=== PATIENT | female | born 1960 | race Caucasian/White ===

== ENCOUNTER 2018-04-02 12:06 | Inpatient (IN) | payer BC ==
[2018-04-02 13:06] LABS: #Neutrophils 8.1 thou/uL (1.40-6.50); %Eosinophils 0.1 % (0.0-10.0); %Lymphocytes 10.1 % (21.0-51.0); %Monocytes 9.6 % (0.0-10.0); %Neutrophils 80.2 % (42.0-75.0); Hemoglobin 10.8 g/dL (12.0-16.0); Mean Corpuscular HGB CONC 33.2 g/dL (32.0-36.0); Mean Corpuscular Hemoglobin 33.3 pg (27.0-31.0); Mean Platelet Volume 7.2 fL (7.4-10.4); Platelet Count 438 thou/uL (130-400); RBC Distribution Width 12.2 % (11.5-14.5); Red Blood Cell (RBC) Count 3.25 mill/uL (4.20-5.40)
[2018-04-02 13:32] LABS: ALT (SGPT) 17 U/L (8-55); AST (SGOT) 22 U/L (5-34); Albumin 2.9 g/dL (3.5-5.0); Alkaline Phosphatase 84 U/L (40-150); Anion Gap 14 mmol/L (10-20); BUN (Urea Nitrogen) 5 mg/dL (9.8-20.1); Bilirubin, Total 0.6 mg/dL (0.2-1.2); Calc. Creatinine Clearance 0 mL/min (70-130); Calcium 8.4 mg/dL (7.8-10.44); Carbon Dioxide 22 mmol/L (22-29); Chloride 103 mmol/L (98-107); Estimated GFR-MDRD Greater than 90; Globulin 2.3 g/dL (2.4-3.5); Glucose 105 mg/dL (70-105); Potassium 4.1 mmol/L (3.5-5.1); Protein, Total 5.2 g/dL (6.0-8.3); Sodium 135 mmol/L (136-145)
[2018-04-02] MEDS ORDERED: Morphine 4 MG/ML VIAL SLOW IVP PRN (14:07)
[2018-04-02] MEDS ORDERED: Milk Of Magnesia 30 ML UDCUP PO PRN (14:07)
[2018-04-02] MEDS ORDERED: Acetaminophen 325 MG TAB PO PRN (14:07)
[2018-04-02] MEDS ORDERED: Ondansetron HCl/PF 4 MG/2 ML Vial IV PRN (14:07)
[2018-04-02] MEDS ORDERED: Fentanyl 100 MCG/2 ML VIAL SLOW IVP PRN (14:07)
[2018-04-02] MEDS ORDERED: Bisacodyl 10 MG SUPP PR PRN (14:07)
[2018-04-02] MEDS ORDERED: traMADol HCl 50 MG TAB PO PRN (14:07)
[2018-04-02] MEDS ORDERED: CEFAZOLIN/Water 2 GM/20 ML SYRINGE SLOW IVP SCH (14:15)
[2018-04-02] MEDS ORDERED: Communication Order-Pharmacy FS PRN (14:15)
[2018-04-02] MEDS ORDERED: diphenhydrAMINE 50 MG/ML VIAL ONE (14:17)
[2018-04-02] MEDS ORDERED: PROPOFOL 200 MG/20 ML VIAL ONE (14:17)
[2018-04-02] MEDS ORDERED: Lidocaine 1% PF 5 ML VIAL ONE (14:17)
[2018-04-02] MEDS ORDERED: Metoclopramide HCl 10 MG/2 ML VIAL ONE (14:17)
[2018-04-02] MEDS ORDERED: Dexamethasone 20 MG/5 ML VIAL ONE (14:17)
[2018-04-02] MEDS ORDERED: Glycopyrrolate 0.2 MG/ML 5 ML SYRINGE ONE (14:17)
--- NOTE | 2018-04-02 14:27 | HP ---
DATE OF ADMISSION: 04/02/2018 PRINCIPAL DIAGNOSIS: Right medial knee subcutaneous abscess. BRIEF HISTORY OF PRESENT ILLNESS: Patient is a 57-year-old lady who reports a 6 -month history of intermittent right medial knee pain with occasional drainage from a small subcutaneous abscess. This has been cared for by her primary care physician including multiple episodes of antibiotic treatment. Over the last 24 -48 hours, her pain has significantly increased and upon arrival at [facility], she was found to have an oral temperature of 102 degrees Fahrenheit with severe medial knee pain that is preventing her from being able to ambulate. As such, orthopedic consultation requested. PAST MEDICAL HISTORY: Remarkable for hypertension, osteoarthritis, and anxiety. PAST SURGICAL HISTORY: Includes spine surgery performed in [place] in 1997. MEDICATIONS: Include a hypertensive medication and a medication for anxiety. She has been taking occasional Tylenol 3 for pain. DRUG ALLERGIES: None known. SOCIAL HISTORY: She smokes a half pack of cigarettes per day and has done so for 40 years. She denies recreational drug use. Denies alcohol use. FAMILY HISTORY: Noncontributory. REVIEW OF SYSTEMS: Patient reports a 2-day history of intermittent fevers and chills. She currently denies shortness of breath or chest pain. She denies numbness or tingling in the lower extremity. PHYSICAL EXAMINATION: VITAL SIGNS: Temperature of 102 degrees Fahrenheit orally. She has a heart rate of 95, respiratory rate of 16, and blood pressure 160/80. She reports a pain level of 8/10. HEENT: Atraumatic, normocephalic. HEART: Shows a regular rate and rhythm without murmur. LUNGS: Clear to auscultation bilaterally with good breath sounds. ABDOMEN: Round, but nontender with normal bowel sounds. Pelvis is stable. EXTREMITIES: Remarkable for right lower extremity with a small focal mass at the medial aspect of the knee just distal to the joint line and appears to be subcutaneous in location. There is a small area of drainage centralized over this small mass that is weeping serous fluid. I do not appreciate surrounding erythema. Distally, she has intact subjective sensation. Her calf is soft and nontender. LABORATORY DATA AND IMAGING DATA: She has CBC, blood culture, CRP, sed rate, and complete metabolic panel pending. X-ray; right knee films are remarkable for severe degenerative joint disease of the knee with bone on bone changes at the medial joint space and evidence of chondrocalcinosis laterally. She is found to have a soft tissue mass also noted in the subcutaneous tissue at the medial aspect of the knee. ASSESSMENT: A 57-year-old lady with chronic draining abscess right knee which has not responded to antibiotics. PLAN: At this time, I believe it is time to proceed to the operating room for incision and drainage of this mass. At this time, I do not see evidence for a septic joint, although when she is in the operating room, we will reassess the knee and if there is suspicion for possible septic joint involvement, we will proceed with a lateral aspiration keeping the needle poke away from the area of abscess. I have discussed with patient the risks and benefits of the procedure. The risks include, but are not limited to bleeding, infection, nerve injury, DVT, PE, worsening infection, loss of limb or life. Patient appears to understand and does wish to proceed. Consent will be obtained prior to surgery. JAHAIRA
--- NOTE | 2018-04-02 14:36 | RAD ---
4 VIEWS RIGHT KNEE: Date: 04/02/18 HISTORY: Abscess on right knee for 2 months. FINDINGS: There is severe osteoarthrosis of the right knee. There is soft tissue swelling seen medial to the kn ee. There is mild joint capsular distention. There is a small interarticular body seen within the pos terior aspect of the knee joint measuring 1.3 cm. This is seen approximately posteromedial to the med ial femoral condyle. IMPRESSION: 1. Severe osteoarthrosis of the right knee with interarticular body. 2. Soft tissue swelling seen along the medial aspect of the right knee. POS: [facility]
[2018-04-02] MEDS ORDERED: Neomycin-Polymyxin 1 ML AMP ONE ×2 (16:00→17:09)
[2018-04-02] MEDS ORDERED: CEFAZOLIN/Water 2 GM/20 ML SYRINGE ONE (16:02)
[2018-04-02] MEDS ORDERED: Ondansetron ODT 4 MG TAB PO PRN (16:14)
[2018-04-02] MEDS ORDERED: Fentanyl 100 MCG/2 ML VIAL ONE (16:19)
[2018-04-02] MEDS ORDERED: Midazolam HCl 2 mg/2 ml Vial ONE (16:32)
[2018-04-02] MEDS ORDERED: TETANUS AND DIPHTHERIA TOX/PF 0.5 ML DISP.SYRIN IM SCH (17:00)
[2018-04-02] MEDS ORDERED: HYDROmorphone 2 MG/ML VIAL ONE ×2 (17:42→21:10)
[2018-04-02] MEDS ORDERED: Promethazine HCl 25 MG/ML VIAL SLOW IVP PRN (17:51)
[2018-04-02] MEDS ORDERED: Promethazine HCl 25 MG/ML VIAL IM PRN (17:51)
[2018-04-02] MEDS ORDERED: HYDROmorphone 2 MG/ML VIAL SLOW IVP PRN (17:51)
[2018-04-02] MEDS ORDERED: Meperidine HCl/PF 25 MG/ML VIAL SLOW IVP PRN (17:51)
[2018-04-02] MEDS ORDERED: Ketorolac Tromethamine 30 MG/ML VIAL IVP SCH (18:00)
[2018-04-02 19:39] LABS: BF Color Red; Body Fluid Source SYNOVIAL FLUID; Clarity Cloudy/Turbid (Clear); RBC Count-Automated 401000 /cumm; Tube # EDTA; WBC/NonHematic-Auto 23900 /cumm
[2018-04-02 20:11] LABS: BF Segmented Neutrophils 91 %; Cell Count Non Hematic 1 %; Lymphocytes 8 %
[2018-04-02 22:25] VITALS: BMI 35.9
[2018-04-02] MEDS: Aspirin 81 mg Enteric Coated Tablet PO SCH (23:12)
[2018-04-02] MEDS: Ketorolac Tromethamine 30 MG/ML VIAL IVP SCH (23:12)
[2018-04-02] MEDS: Sodium Chloride 0.9% 1,000 ML IV SCH (23:13)
[2018-04-02] MEDS: Vancomycin HCl 1 GM in Premix Bag 1 BAG IVPB SCH (23:14)
[2018-04-02] MEDS: Piperacillin/Tazobactam 3.375 GM in Sodium Chloride 0.9% 100 ML IVPB SCH (23:14)
[2018-04-02] MEDS: HYDROcodone/Acetaminophen 10/325 mg Tablet PO PRN (23:19)
[2018-04-02] MEDS: Sodium Chloride 0.9% 100 ML IV SCH ×3 (23:26→23:28)
--- NOTE | 2018-04-03 01:35 | OP ---
DATE OF SURGERY: 04/02/2018 PREOPERATIVE DIAGNOSIS: Right medial knee abscess. 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 PROCEDURES: 1. Excision of synovial cutaneous fistula, right knee. 2. Irrigation through medial arthrotomy of right septic knee. ANESTHESIA: General. SURGEON: Brennan Castaneda M.D. TOURNIQUET TIME: 15 minutes at 300 mmHg. SPECIMEN: 1. Swab and syringe sent for cell count, culture, and sensitivity of intra-articular fluid and absce ss fluid. 2. Synovial cutaneous fistula excised and sent for pathology. COMPLICATIONS: None. DRAINS: None. SPECIMEN: None. OUTCOME: Satisfactory irrigation of right knee. INDICATIONS: Patient is a 57-year-old lady with a 6-month history of chronic draining wound from the right medial knee. This has been treated with periodic antibiotics; however, she presents to the ER today with a fever of 102 degrees and increasing pain in the right knee. X-ray shows a severely deg enerative knee with a soft tissue swelling at the medial aspect of the knee and clinical exam shows e vidence of a subcutaneous abscess with some draining seropurulent material. After discussion with chuck lundy including risks and benefits, we decided to proceed with anticipated incision and drainage of t his abscess. Informed consent has been obtained. I believe all questions have been answered. DESCRIPTION OF PROCEDURE: The patient was brought to the operating room and a timeout was performed followed by induction of general anesthesia. A sterile prep and drape was then performed of the righ t lower extremity. Next, a vertical incision was made centered over the small draining sinus. After skin was sharply incised, dissection was carried down bluntly and at this point, there was found to be a firm cavity around the small sinus. Using blunt dissection, this cavity was further dissected f rom the subcutaneous tissue and eventually resected. At this point, it became obvious that this mass was actually a synovial cutaneous fistula wall with a still present fistula entering the right knee at the medial aspect of the knee near the patellofemoral joint. This remaining fistula was also lorna ply excised using a scalpel and removed thereby entering the knee joint proper and at this point a cl oudy fluid was encountered. This was aspirated as well as swabbed and sent for cell count Gram stain , culture and sensitivity. Next, a suction device was placed in the knee and further fluid was drain ed from the knee. Once the entire synovial cutaneous fistula was excised sharply, there was found to be a rather large hole in the medial retinaculum. A 3 L of normal saline with Pulsavac was then irr igated through the knee. At this point, it was felt that given the chronicity of this infection, it would be best to leave this wound open to allow for drainage as such and was packed with a saline soa ked gauze and then further gauze, and ABD dressing. At the completion of this, the patient was then transferred to recovery room in stable condition. It should be noted that midway through the procedu re, the tourniquet was inflated to allow for hemostasis to be obtained. The tourniquet was let down at the completion of dressing. There were no complications. Patient tolerated the procedure well. She will be started on empiric antibiotic coverage and Infectious Disease consultation will be obtain ed.
[2018-04-03] MEDS: HYDROcodone/Acetaminophen 10/325 mg Tablet PO PRN ×5 (03:11→23:27)
[2018-04-03] MEDS: Piperacillin/Tazobactam 3.375 GM in Sodium Chloride 0.9% 100 ML IVPB SCH ×4 (04:38→20:41)
[2018-04-03] MEDS: Ketorolac Tromethamine 30 MG/ML VIAL IVP SCH ×4 (04:38→23:27)
[2018-04-03 04:43] LABS: #Lymphocytes 0.7 thou/uL (1.20-3.40); #Monocytes 0.5 thou/uL (0.11-0.59); #Neutrophils 8.6 thou/uL (1.40-6.50); %Basophils 0.1 % (0.0-1.0); %Eosinophils 0.1 % (0.0-10.0); %Lymphocytes 7.1 % (21.0-51.0); %Monocytes 5.1 % (0.0-10.0); %Neutrophils 87.7 % (42.0-75.0); Hemoglobin 10.6 g/dL (12.0-16.0); Mean Corpuscular HGB CONC 32.3 g/dL (32.0-36.0); Mean Corpuscular Hemoglobin 32.7 pg (27.0-31.0); Mean Platelet Volume 7.3 fL (7.4-10.4); Platelet Count 460 thou/uL (130-400); RBC Distribution Width 12.3 % (11.5-14.5); Red Blood Cell (RBC) Count 3.26 mill/uL (4.20-5.40); White Blood Cell (WBC) Count 9.8 thou/uL (4.8-10.8)
[2018-04-03] MEDS ORDERED: busPIRone HCl 10 MG TAB PO PRN (07:37)
[2018-04-03] MEDS ORDERED: Labetalol HCl 100 MG/20 ML VIAL SLOW IVP PRN (07:38)
[2018-04-03] MEDS: Metoprolol Tartrate 25 MG TAB PO SCH ×2 (09:24→20:42)
[2018-04-03] MEDS: Aspirin 81 mg Enteric Coated Tablet PO SCH ×2 (09:24→20:42)
[2018-04-03] MEDS: Vancomycin HCl 1 GM in Premix Bag 1 BAG IVPB SCH (11:08)
[2018-04-03] MEDS: Sodium Chloride 0.9% 1,000 ML IV SCH ×2 (11:13→18:18)
--- NOTE | 2018-04-03 19:46 | PDOC.PN ---
- Subjective Encounter Start Date: 04/03/18 Encounter Start Time: 14:30 Patient seen and examined for med mngt. Had some nausea over the last 3 days - now resolved. No CP/SOB. - Objective MAR Reviewed: Yes Vital Signs & Weight: Vital Signs (12 hours) Temp Pulse Resp BP Pulse Ox 04/03/18 16:02 98.1 F 75 16 131/76 96 04/03/18 11:26 98.1 F 72 16 124/61 95 04/03/18 09:22 96 Weight Admit Weight 190 lb Weight 190 lb I&O: 04/02/18 04/03/18 04/04/18 06:59 06:59 06:59 Intake Total 1200 2250 Balance 1200 2250 Result Diagrams: 04/03/18 03:28 04/02/18 12:48 EKG Reviewed by me: Yes (Tele in chart - SR) Phys Exam - Physical Examination Constitutional: NAD Respiratory: no wheezing, no rhonchi Cardiovascular: RRR, no rub Gastrointestinal: soft, non-tender, positive bowel sounds Musculoskeletal: no edema Neurological: moves all 4 limbs Dx/Plan - Plan DVT proph w/SCDs IMPRESSION: 1. HTN 2. MRSA bacteremia due to infected knee 3. Obesity BMI 35.9 4. Anxiety/Depression PLAN: Cont Metoprolol at low dose Resume Buspirone Resume Benazepril at low dose Cont Vancomycin Monitor Vancomycin level Echo to r/o vegetation Review of Systems - Review of Systems Respiratory: negative: Cough, Dry, Shortness of Breath, Hemoptysis, SOB with Excertion, Pleuritic Pain, Sputum, Wheezing Cardiovascular: negative: chest pain, palpitations, orthopnea, paroxysmal nocturnal dyspnea, edema, light headedness, other - Medications/Allergies Allergies/Adverse Reactions: Allergies Allergy/AdvReac Type Severity Reaction Status Date / Time No Known Drug Allergies Allergy Verified 04/03/18 03:31 Medications: Current Medications Acetaminophen (Tylenol) 650 mg PO Q6H PRN PRN Reason: Headache/Temp >101F/Mild Pain Hydrocodone Bitart/Acetaminophen ([place] 10/325) 1 tab PO Q4H PRN PRN Reason: Moderate Pain (4-6) Last Admin: 04/03/18 03:11 Dose: 1 tab Hydrocodone Bitart/Acetaminophen ([place] 10/325) 2 tab PO Q4H PRN PRN Reason: Severe Pain (7-10) Last Admin: 04/03/18 17:29 Dose: 2 tab Aspirin (Ecotrin) 81 mg PO BID [facility] Last Admin: 04/03/18 09:24 Dose: 81 mg Bisacodyl (Dulcolax) 10 mg [place] DAILY PRN PRN Reason: Constipation Buspirone HCl (Buspar) 10 mg PO TID PRN PRN Reason: Anxiety Fentanyl (Sublimaze) 50 mcg SLOW IVP Q30M PRN PRN Reason: Severe breakthrough pain Piperacillin Sod/Tazobactam (Sod 3.375 gm/ Sodium Chloride) 100 mls @ 200 mls/ hr IVPB 0400,1000,1600,2200 [facility] Last Admin: 04/03/18 16:58 Dose: 100 mls Vancomycin HCl 1 gm/ Device 200 mls @ 200 mls/hr IVPB 1100,2300 [facility] Last Admin: 04/03/18 11:08 Dose: 200 mls Sodium Chloride (Normal Saline 0.9%) 1,000 mls @ 100 mls/hr IV .Q10H [facility] Last Admin: 04/03/18 18:18 Dose: Not Given Ketorolac Tromethamine (Toradol) 15 mg IVP 0500,1100,1700,2300 [facility] Stop: 04/03/18 23:01 Last Admin: 04/03/18 17:00 Dose: 15 mg Labetalol HCl (Normodyne) 10 mg SLOW IVP Q4H PRN PRN Reason: Systolic BP > 180 Magnesium Hydroxide (Milk Of Magnesium) 30 ml PO DAILY PRN PRN Reason: Constipation Metoprolol Tartrate (Lopressor) 12.5 mg PO BID [facility] Last Admin: 04/03/18 09:24 Dose: 12.5 mg Miscellaneous Information (Communication Order-Pharmacy) 1 each FS PRN PRN PRN Reason: Pharmacy to dose Miscellaneous Medication (Pharmacy To Dose) 1 each IVPB PRN PRN PRN Reason: Pharmacy to dose Morphine Sulfate (Morphine) 2 mg IVP Q2H PRN PRN Reason: Moderate Pain (4-6) Morphine Sulfate (Morphine) 4 mg SLOW IVP Q2H PRN PRN Reason: Severe Pain (7-10) Ondansetron HCl (Zofran Odt) 4 mg PO Q6H PRN PRN Reason: Nausea/Vomiting Ondansetron HCl (Zofran) 4 mg IV Q6H PRN PRN Reason: Nausea Sodium Chloride (Flush - Normal Saline) 10 ml IVF PRN PRN PRN Reason: Saline Flush Tramadol HCl (Ultram) 50 mg PO Q6H PRN PRN Reason: Mild Pain (1-3) Tramadol HCl (Ultram) 100 mg PO Q6H PRN PRN Reason: Moderate Pain (4-6)
[2018-04-03 22:10] LABS: Vancomycin, Trough 9.2 ug/mL
[2018-04-03] MEDS: Vancomycin HCl 1.5 GM in Sodium Chloride 0.9% 250 ML 300 ML IVPB SCH (23:28)
[2018-04-04] MEDS: Vancomycin HCl 1 GM in Premix Bag 1 BAG IVPB SCH (00:02)
[2018-04-04] MEDS: Piperacillin/Tazobactam 3.375 GM in Sodium Chloride 0.9% 100 ML IVPB SCH ×3 (03:56→15:03)
[2018-04-04] MEDS: Sodium Chloride 0.9% 1,000 ML IV SCH ×3 (03:57→21:56)
[2018-04-04 05:43] LABS: Anion Gap 12 mmol/L (10-20); BUN (Urea Nitrogen) 6 mg/dL (9.8-20.1); Calc. Creatinine Clearance 139 mL/min (70-130); Calcium 9.1 mg/dL (7.8-10.44); Carbon Dioxide 25 mmol/L (22-29); Chloride 106 mmol/L (98-107); Estimated GFR-MDRD Greater than 90; Glucose 101 mg/dL (70-105); Magnesium 1.9 mg/dL (1.6-2.6); Potassium 3.9 mmol/L (3.5-5.1); Sodium 139 mmol/L (136-145)
[2018-04-04 05:55] LABS: #Lymphocytes 1.2 thou/uL (1.20-3.40); #Monocytes 0.9 thou/uL (0.11-0.59); #Neutrophils 7.4 thou/uL (1.40-6.50); %Basophils 0.1 % (0.0-1.0); %Eosinophils 0.4 % (0.0-10.0); %Lymphocytes 12.8 % (21.0-51.0); %Monocytes 9.4 % (0.0-10.0); %Neutrophils 77.3 % (42.0-75.0); Hemoglobin 10.1 g/dL (12.0-16.0); Mean Corpuscular HGB CONC 32.3 g/dL (32.0-36.0); Mean Corpuscular Hemoglobin 32.4 pg (27.0-31.0); Mean Platelet Volume 6.8 fL (7.4-10.4); Platelet Count 487 thou/uL (130-400); RBC Distribution Width 12.3 % (11.5-14.5); Red Blood Cell (RBC) Count 3.12 mill/uL (4.20-5.40); White Blood Cell (WBC) Count 9.6 thou/uL (4.8-10.8)
[2018-04-04] MEDS: Aspirin 81 mg Enteric Coated Tablet PO SCH ×2 (08:14→21:55)
[2018-04-04] MEDS: Metoprolol Tartrate 25 MG TAB PO SCH ×2 (08:16→21:55)
[2018-04-04] MEDS ORDERED: PROPOFOL 200 MG/20 ML VIAL ONE (10:00)
[2018-04-04] MEDS ORDERED: Lidocaine 1% PF 5 ML VIAL ONE (10:00)
[2018-04-04] MEDS ORDERED: Succinylcholine Chloride 20 MG/ML 10 ml SYRINGE FS ONE (10:00)
[2018-04-04] MEDS ORDERED: Ondansetron HCl/PF 4 MG/2 ML Vial ONE (10:00)
[2018-04-04] MEDS ORDERED: Glycopyrrolate 0.2 MG/ML 5 ML SYRINGE ONE (10:00)
[2018-04-04] MEDS ORDERED: Fentanyl 100 MCG/2 ML VIAL ONE ×4 (10:58→13:52)
[2018-04-04] MEDS ORDERED: Neomycin-Polymyxin 1 ML AMP ONE (11:01)
[2018-04-04] MEDS ORDERED: Promethazine HCl 25 MG/ML VIAL ONE (12:40)
--- NOTE | 2018-04-04 12:40 | OP ---
DATE OF OPERATION: 04/04/2018 OPERATION: Irrigation and debridement of right knee infection with drain placement. PREOPERATIVE DIAGNOSIS: Right septic knee arthritis. POSTOPERATIVE DIAGNOSIS: Right septic knee arthritis. COMPLICATIONS: None. ESTIMATED BLOOD LOSS: Minimal. SURGEON: Haider Pace M.D. ANESTHESIA: General. INDICATIONS: Ms. Elliott is a 57-year-old female who has a chronically infected right knee. She h as had 1 previous irrigation procedure. She was indicated for repeat I&D to hopefully help to eradic ate infection. Goal of surgery is to irrigate the knee and closed the wound as well as place a drain . She will continue intravenous antibiotics. DESCRIPTION OF PROCEDURE: Ms. Elliott was identified in the preoperative holding area. Her correc t extremity was marked. She was carried to the operating room. She was positioned supine. General anesthesia was induced. A multidisciplinary timeout was performed. The right lower extremity was pr epped and draped in sterile fashion. We began the procedure by extending the patient's open medial a rthrotomy. We encountered some purulent material in the knee joint. We obtained good access to the knee joint and then thoroughly irrigated the joint with 5 liters under pulse lavage. There was an tibiotic in the irrigant. We performed a synovectomy gently with a rongeur. At this point, we place d a large Hemovac drain within the knee joint. This was sutured in place. We then closed the arthro evelyn with a PDS suture followed by nylon for the skin. A sterile dressing was applied at this point. The patient was taken to the recovery room in good condition without complication.
[2018-04-04] MEDS: Vancomycin HCl 1.5 GM in Sodium Chloride 0.9% 250 ML 300 ML IVPB SCH ×2 (13:33→22:03)
[2018-04-04] MEDS ORDERED: HYDROmorphone 2 MG/ML VIAL ONE (13:36)
[2018-04-04] MEDS: HYDROcodone/Acetaminophen 10/325 mg Tablet PO PRN ×3 (14:58→23:24)
--- NOTE | 2018-04-04 23:57 | CON ---
DATE OF CONSULTATION: 04/04/2018 REASON FOR CONSULTATION: Right knee infection. HISTORY OF PRESENT ILLNESS: A 57-year-old, who has a history of hypertension, osteoarthritis, and in September of this year developed what she describes as abscess in the medial aspect of the right knee associated with pain and purulent drainage. The patient went to the emergency room in [facility] and had limited ER incision and debridement procedure and was placed on short term oral antimicrobial therapy. She does not recall any culture results. She continued to experience chronic drainage from that area, sometimes clear, sometimes purulent and was given antimicrobial therapy. Again , no culture data is available from those episodes. Eventually an MRI of the knee was done and they told her that she has had a "growth" in the area of the medial knee and she was referred to an orthopedic surgeon. Unfortunately, her became ill and she was not able to continue with the workup for her right knee problem, until now when things got out of hand, she started experiencing much more intense pain and functional limitation. Eventually end up admitted and now has had two procedures one by Dr. Castaneda. The postop diagnosis was a chronic infection of the right knee with synovial cutaneous fistula, which was excised and Dr. Pace 2 days later in the area and did a repeat washout with synovectomy. Hemovac drain in place. The arthrotomy was closed with PDS suture. REVIEW OF SYSTEMS: Currently, she is awake and alert. Denies any headaches, visual symptoms, sore throat, odynophagia or dysphagia, no back pain, no dyspnea , no cough, no abdominal pain. She is voiding spontaneously. No diarrhea. PAST MEDICAL HISTORY: Hypertension, osteoarthritis, anxiety, chronic right knee infection. PAST SURGICAL HISTORY: Laminectomy in [place] many years ago. MEDICATIONS: Currently receiving Hayes, Ecotrin, Lotensin, Dulcolax, BuSpar, Sublimaze, Normodyne, Lopressor, Zofran, Zosyn, and vancomycin. ALLERGIES: None. SOCIAL HISTORY: Current smoker. Does not drink alcoholic beverages. No drug use. Lives in [place]. FAMILY HISTORY: Noncontributory. PHYSICAL EXAMINATION: VITAL SIGNS: T-max 98.4, blood pressure 130/70, pulse 90, respirations 20, and O2 saturation 97%. SKIN: Peripheral IV access. No Noguera catheter. The right knee is dressed. Dressing not removed at this time. No lymphadenopathy. HEENT: She has numerous missing teeth. Remainder ones with severe decay and gum disease. NECK: Supple, jugular vein distention. LUNGS: With symmetric clear breath sounds. HEART: S1, S2, regular rate. No S3, S4. ABDOMEN: Soft, not distended or tender. No ascites. No bladder distention, there is evidence of osteoarthrosis in the left knee. The ankles appear to be fine. EXTREMITIES: Pulses 1+ in dorsalis pedis. Cap refill normal. NEUROLOGIC: Plantar responses are flexure. She moves extremities equally with limitations imposed by the right knee inflammatory process. Cognitive function appears to be intact. She has good recall and orientation. LABORATORY DATA: White cell count wnl, hemoglobin 10.8, MCV 100, platelets are up to 47, 77% neutrophils. Sodium 139, creatinine 0.6. Liver profile normal, albumin 2.9. CRP 27.14, synovial fluid is 23,000 WBCs. Crystal ID negative. A knee x-ray done on 04/02/2018, severe osteoarthrosis intra-articular body. Cultures will have numerous knee samples with MRSA in one set of blood cultures out of two with MRSA as well. ASSESSMENT: Osteoarthrosis, hypertension with right knee infection with a synovial-cutaneous fistula. DISCUSSION: Differential diagnosis includes a primary septic arthritis with then development of a fistula and possible osteomyelitis. Other sites of involvement are not apparent at this time. She does have transient bacteremia. We will order 2D echocardiogram to evaluate heart valves and PICC line placement and treat for a protracted period of time, we will obtain of the MRIs from [facility] from January to evaluate the possibility of osteomyelitis. May have to repeat the MRI of the knee at this time. JAHAIRA
[2018-04-05] MEDS: HYDROcodone/Acetaminophen 10/325 mg Tablet PO PRN ×4 (05:13→20:47)
[2018-04-05 05:37] LABS: #Eosinphils 0.1 thou/uL (0.0-0.7); #Lymphocytes 1.3 thou/uL (1.20-3.40); #Monocytes 1.4 thou/uL (0.11-0.59); #Neutrophils 7.8 thou/uL (1.40-6.50); %Basophils 0.3 % (0.0-1.0); %Lymphocytes 12.2 % (21.0-51.0); %Monocytes 13.3 % (0.0-10.0); %Neutrophils 73.2 % (42.0-75.0); Hemoglobin 10.1 g/dL (12.0-16.0); Mean Corpuscular HGB CONC 31.2 g/dL (32.0-36.0); Mean Corpuscular Hemoglobin 32.2 pg (27.0-31.0); Mean Platelet Volume 6.7 fL (7.4-10.4); Platelet Count 526 thou/uL (130-400); RBC Distribution Width 12.4 % (11.5-14.5); Red Blood Cell (RBC) Count 3.15 mill/uL (4.20-5.40); White Blood Cell (WBC) Count 10.7 thou/uL (4.8-10.8)
[2018-04-05] MEDS: Metoprolol Tartrate 25 MG TAB PO SCH ×2 (08:41→20:47)
[2018-04-05] MEDS: Aspirin 81 mg Enteric Coated Tablet PO SCH ×2 (08:41→20:47)
[2018-04-05] MEDS: Vancomycin HCl 1.5 GM in Sodium Chloride 0.9% 250 ML 300 ML IVPB SCH (10:10)
[2018-04-05 10:21] LABS: Vancomycin, Trough 25.3 ug/mL
[2018-04-05] MEDS: Sodium Chloride 0.9% 1,000 ML IV SCH ×2 (15:13→20:48)
--- NOTE | 2018-04-05 19:23 | PDOC.PN ---
- Subjective Encounter Start Date: 04/05/18 Encounter Start Time: 11:00 Patient seen and examined for med mngt. Joint pain +. No new complaints. No overnight events - Objective MAR Reviewed: Yes Vital Signs & Weight: Vital Signs (12 hours) Temp Pulse Resp BP Pulse Ox 04/05/18 15:50 98.4 F 81 16 133/83 96 04/05/18 11:50 98 F 84 20 116/71 93 L 04/05/18 08:00 98.1 F 85 20 129/69 94 L Weight Admit Weight 190 lb Weight 190 lb I&O: 04/04/18 04/05/18 04/06/18 06:59 06:59 06:59 Intake Total 2250 1620 Output Total 25 Balance 2250 1620 -25 Result Diagrams: 04/05/18 05:07 04/04/18 04:57 Phys Exam - Physical Examination Constitutional: NAD Respiratory: no wheezing, no rhonchi Cardiovascular: RRR, no rub Gastrointestinal: soft, non-tender, positive bowel sounds Musculoskeletal: no edema Dx/Plan - Plan DVT proph w/SCDs IMPRESSION: 1. HTN 2. MRSA bacteremia 3. Obesity BMI 35.9 4. Anxiety/Depression PLAN: Cont Metoprolol/Benazepril at low dose - Please titrate to home dose based on BP Cont Buspirone Cont Vancomycin Monitor Vancomycin level Echo - No vegetation Review of Systems - Review of Systems Respiratory: negative: Cough, Dry, Shortness of Breath, Hemoptysis, SOB with Excertion, Pleuritic Pain, Sputum, Wheezing Cardiovascular: negative: chest pain, palpitations, orthopnea, paroxysmal nocturnal dyspnea, edema, light headedness, other - Medications/Allergies Allergies/Adverse Reactions: Allergies Allergy/AdvReac Type Severity Reaction Status Date / Time No Known Drug Allergies Allergy Verified 04/03/18 03:31 Medications: Current Medications Acetaminophen (Tylenol) 650 mg PO Q6H PRN PRN Reason: Headache/Temp >101F/Mild Pain Hydrocodone Bitart/Acetaminophen ([place] 10/325) 1 tab PO Q4H PRN PRN Reason: Moderate Pain (4-6) Last Admin: 04/03/18 03:11 Dose: 1 tab Hydrocodone Bitart/Acetaminophen ([place] 10/325) 2 tab PO Q4H PRN PRN Reason: Severe Pain (7-10) Last Admin: 04/05/18 15:23 Dose: 2 tab Aspirin (Ecotrin) 81 mg PO BID [facility] Last Admin: 04/05/18 08:41 Dose: 81 mg Benazepril HCl (Lotensin) 10 mg PO BID [facility] Last Admin: 04/05/18 08:41 Dose: 10 mg Bisacodyl (Dulcolax) [address] DAILY PRN PRN Reason: Constipation Buspirone HCl (Buspar) 10 mg PO TID PRN PRN Reason: Anxiety Fentanyl (Sublimaze) 50 mcg SLOW IVP Q30M PRN PRN Reason: Severe breakthrough pain Sodium Chloride (Normal Saline 0.9%) 1,000 mls @ 100 mls/hr IV .Q10H [facility] Last Admin: 04/05/18 15:13 Dose: 1,000 mls Vancomycin HCl 750 mg/ Sodium (Chloride) 250 mls @ 250 mls/hr IVPB 0300,1100, 1900 [facility] Labetalol HCl (Normodyne) 10 mg SLOW IVP Q4H PRN PRN Reason: Systolic BP > 180 Magnesium Hydroxide (Milk Of Magnesium) 30 ml PO DAILY PRN PRN Reason: Constipation Metoprolol Tartrate (Lopressor) 25 mg PO BID [facility] Last Admin: 04/05/18 08:41 Dose: 25 mg Miscellaneous Information (Communication Order-Pharmacy) 1 each FS PRN PRN PRN Reason: Pharmacy to dose Miscellaneous Medication (Pharmacy To Dose) 1 each IVPB PRN PRN PRN Reason: Pharmacy to dose Morphine Sulfate (Morphine) 2 mg IVP Q2H PRN PRN Reason: Moderate Pain (4-6) Morphine Sulfate (Morphine) 4 mg SLOW IVP Q2H PRN PRN Reason: Severe Pain (7-10) Ondansetron HCl (Zofran Odt) 4 mg PO Q6H PRN PRN Reason: Nausea/Vomiting Ondansetron HCl (Zofran) 4 mg IV Q6H PRN PRN Reason: Nausea Sodium Chloride (Flush - Normal Saline) 10 ml IVF PRN PRN PRN Reason: Saline Flush Tramadol HCl (Ultram) 50 mg PO Q6H PRN PRN Reason: Mild Pain (1-3) Tramadol HCl (Ultram) 100 mg PO Q6H PRN PRN Reason: Moderate Pain (4-6)
[2018-04-06] MEDS: HYDROcodone/Acetaminophen 10/325 mg Tablet PO PRN ×6 (01:32→23:30)
[2018-04-06] MEDS: Sodium Chloride 0.9% 1,000 ML IV SCH ×2 (06:21→16:02)
[2018-04-06] MEDS: Aspirin 81 mg Enteric Coated Tablet PO SCH ×2 (09:20→20:32)
[2018-04-06] MEDS: Metoprolol Tartrate 25 MG TAB PO SCH ×2 (09:20→20:32)
[2018-04-06] MEDS: Vancomycin HCl 750 MG in Sodium Chloride 0.9% 250 ML 250 ML IVPB SCH ×2 (10:53→18:21)
--- NOTE | 2018-04-06 16:23 | PDOC.PN ---
- Subjective Encounter Start Date: 04/06/18 Encounter Start Time: 16:21 Ms. Elliott was seen today in follow-up of septic right knee. She notes a little nausea, but otherwise no complaints. - Objective MAR Reviewed: Yes Vital Signs & Weight: Vital Signs (12 hours) Temp Pulse Resp BP BP Pulse Ox 04/06/18 15:17 98.4 F 87 18 169/92 H 99 04/06/18 11:38 98.5 F 78 22 H 107/67 94 L 04/06/18 09:20 122/76 04/06/18 07:18 98 F 78 18 116/72 95 Weight Admit Weight 190 lb Weight 190 lb I&O: 04/05/18 04/06/18 04/07/18 06:59 06:59 06:59 Intake Total 1620 1290 Output Total 35 Balance 1620 1255 Result Diagrams: 04/05/18 05:07 04/04/18 04:57 Phys Exam - Physical Examination HEENT: PERRLA Respiratory: no wheezing, no rales, no rhonchi, clear to auscultation bilateral Cardiovascular: RRR, no significant murmur, no rub Gastrointestinal: soft, non-tender, no distention, positive bowel sounds Musculoskeletal: no edema Dx/Plan (1) Septic joint of right knee joint Code(s): M00.9 - PYOGENIC ARTHRITIS, UNSPECIFIED Status: Acute (2) Hypertension Code(s): I10 - ESSENTIAL (PRIMARY) HYPERTENSION Status: Chronic (3) Obesity (BMI 30-39.9) Code(s): E66.9 - OBESITY, UNSPECIFIED Status: Chronic - Plan * Right septic knee joint- continue Vancomycin- ( cultures are growing MRSA) * Echo was negative for vegetations * HTN- blood pressure is controlled- only one elevated reading- continue Lisinopril, and metoprolol.
[2018-04-07] MEDS: Sodium Chloride 0.9% 1,000 ML IV SCH ×3 (03:45→23:58)
[2018-04-07] MEDS: Vancomycin HCl 750 MG in Sodium Chloride 0.9% 250 ML 250 ML IVPB SCH ×2 (04:00→18:37)
[2018-04-07] MEDS: HYDROcodone/Acetaminophen 10/325 mg Tablet PO PRN ×5 (04:25→22:03)
[2018-04-07 05:32] LABS: #Eosinphils 0.3 thou/uL (0.0-0.7); #Lymphocytes 1.2 thou/uL (1.20-3.40); #Monocytes 1.3 thou/uL (0.11-0.59); #Neutrophils 10.9 thou/uL (1.40-6.50); %Basophils 0.2 % (0.0-1.0); %Eosinophils 2.2 % (0.0-10.0); %Lymphocytes 8.8 % (21.0-51.0); %Monocytes 9.5 % (0.0-10.0); %Neutrophils 79.3 % (42.0-75.0); Hemoglobin 9.4 g/dL (12.0-16.0); Mean Corpuscular HGB CONC 31.7 g/dL (32.0-36.0); Mean Corpuscular Hemoglobin 32.2 pg (27.0-31.0); Mean Platelet Volume 6.3 fL (7.4-10.4); Platelet Count 618 thou/uL (130-400); RBC Distribution Width 12.2 % (11.5-14.5); Red Blood Cell (RBC) Count 2.92 mill/uL (4.20-5.40); White Blood Cell (WBC) Count 13.8 thou/uL (4.8-10.8)
[2018-04-07 05:53] LABS: Anion Gap 8 mmol/L (10-20); BUN (Urea Nitrogen) 5 mg/dL (9.8-20.1); Calc. Creatinine Clearance 118 mL/min (70-130); Carbon Dioxide 30 mmol/L (22-29); Chloride 104 mmol/L (98-107); Estimated GFR-MDRD 85; Glucose 102 mg/dL (70-105); Potassium 3.4 mmol/L (3.5-5.1); Sodium 139 mmol/L (136-145)
[2018-04-07] MEDS: Metoprolol Tartrate 25 MG TAB PO SCH ×2 (08:29→20:57)
[2018-04-07] MEDS: Aspirin 81 mg Enteric Coated Tablet PO SCH ×2 (08:29→20:57)
[2018-04-07 10:51] LABS: Vancomycin, Trough 25.1 ug/mL
--- NOTE | 2018-04-07 16:16 | PDOC.PN ---
- Subjective Encounter Start Date: 04/07/18 Encounter Start Time: 16:14 Ms. Elliott was seen today in follow-up of septic knee. She says she is feeling a little better today. She notes less pain. She says the nausea has improved. - Objective MAR Reviewed: Yes Vital Signs & Weight: Vital Signs (12 hours) Temp Pulse Resp BP BP Pulse Ox 04/07/18 11:42 98.4 F 79 18 117/56 L 95 04/07/18 08:29 129/77 04/07/18 07:53 98.5 F 80 18 129/77 95 04/07/18 04:52 98.3 F 76 16 135/81 95 Weight Admit Weight 190 lb Weight 190 lb I&O: 04/06/18 04/07/18 04/08/18 06:59 06:59 06:59 Intake Total 1290 2750 Output Total 35 30 Balance 1255 2720 Result Diagrams: 04/07/18 05:15 04/07/18 05:15 Phys Exam - Physical Examination Respiratory: no wheezing, no rales, no rhonchi, clear to auscultation bilateral Cardiovascular: RRR, no significant murmur, no rub Musculoskeletal: pulses present, edema present + swelling in the right knee, no warmth Dx/Plan (1) Septic joint of right knee joint Code(s): M00.9 - PYOGENIC ARTHRITIS, UNSPECIFIED Status: Acute Qualifiers: Qualified Code(s): M00.061 - Staphylococcal arthritis, right knee (2) Hypertension Code(s): I10 - ESSENTIAL (PRIMARY) HYPERTENSION Status: Chronic (3) Obesity (BMI 30-39.9) Code(s): E66.9 - OBESITY, UNSPECIFIED Status: Chronic - Plan * Septic arthritis of the right knee due to MRSA- continue Vancomycin IV * HTN- blood pressure is controlled * Continue PT/OT and symptom control.
[2018-04-08] MEDS: traMADol HCl 50 MG TAB PO PRN ×2 (01:04→15:56)
[2018-04-08] MEDS: HYDROcodone/Acetaminophen 10/325 mg Tablet PO PRN ×5 (02:17→22:54)
[2018-04-08] MEDS: Vancomycin HCl 750 MG in Sodium Chloride 0.9% 250 ML 250 ML IVPB SCH ×2 (05:25→18:37)
[2018-04-08] MEDS: Aspirin 81 mg Enteric Coated Tablet PO SCH ×2 (09:59→21:27)
[2018-04-08] MEDS: Sodium Chloride 0.9% 1,000 ML IV SCH ×2 (09:59→19:47)
[2018-04-08] MEDS: Metoprolol Tartrate 25 MG TAB PO SCH ×2 (10:00→21:27)
--- NOTE | 2018-04-08 15:47 | PDOC.PN ---
- Subjective Encounter Start Date: 04/08/18 Encounter Start Time: 15:45 Ms. Elliott was seen today in follow-up of septic knee. She says her knee feels better. She had the drains removed today. She also feels less nauseated. - Objective MAR Reviewed: Yes Vital Signs & Weight: Vital Signs (12 hours) Temp Pulse Resp BP BP Pulse Ox 04/08/18 15:26 98.3 F 76 14 130/75 97 04/08/18 12:04 98.5 F 71 15 139/80 97 04/08/18 09:59 138/78 04/08/18 07:56 98.5 F 72 16 138/78 95 04/08/18 03:48 98.1 F 79 16 129/69 92 L Weight Admit Weight 190 lb Weight 190 lb I&O: 04/07/18 04/08/18 04/09/18 06:59 06:59 06:59 Intake Total 2750 1210 Output Total 30 45 Balance 2720 1165 Result Diagrams: 04/07/18 05:15 04/07/18 05:15 Phys Exam - Physical Examination HEENT: PERRLA Respiratory: no wheezing, no rales, no rhonchi, clear to auscultation bilateral Cardiovascular: RRR, no significant murmur, no rub Gastrointestinal: soft, non-tender, no distention, positive bowel sounds Musculoskeletal: edema present + edema of the right knee, incision site is clear, no redness or drainage Dx/Plan (1) Hypertension Code(s): I10 - ESSENTIAL (PRIMARY) HYPERTENSION Status: Chronic (2) Septic joint of right knee joint Code(s): M00.9 - PYOGENIC ARTHRITIS, UNSPECIFIED Status: Acute Qualifiers: Qualified Code(s): M00.061 - Staphylococcal arthritis, right knee (3) Obesity (BMI 30-39.9) Code(s): E66.9 - OBESITY, UNSPECIFIED Status: Chronic - Plan * HTN- blood pressure is controlled * Septic right knee- continue Vancomycin, and local woundcare * Continue PT/OT.
--- NOTE | 2018-04-08 19:09 | PRG ---
DATE OF SERVICE: 04/08/2018 SUBJECTIVE: The patient has moderate pain in the knee. No respiratory symptoms. Drains have been removed. She feels less nausea and no shortness of breath or chest pain. No diarrhea. OBJECTIVE: VITAL SIGNS: T-max 98.5, blood pressure 130/75, pulse 76, respirations 14, O2 saturation 97%. GENERAL: Appears in no distress, awake, alert, oriented, follows commands. LUNGS: Clear. CARDIOVASCULAR: S1, S2, regular rate. ABDOMEN: Soft and not distended. LABORATORY DATA: White cell count 13.8, hemoglobin 9.4, platelets 6.8, 79% neutrophils. Sodium 139, creatinine 0.71. All the cultures showed MRSA with cinda for vancomycin of 1. She has one set of positive blood cultures. 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 No other sites of involvement at this time. Transient bacteremia. PICC line placement and disposition with outpatient management. JAHAIRA
[2018-04-09] MEDS: traMADol HCl 50 MG TAB PO PRN (02:22)
[2018-04-09] MEDS: HYDROcodone/Acetaminophen 10/325 mg Tablet PO PRN ×5 (03:00→21:42)
[2018-04-09] MEDS: Sodium Chloride 0.9% 1,000 ML IV SCH ×2 (04:57→14:51)
[2018-04-09 05:57] LABS: Vancomycin, Trough 15.5 ug/mL
[2018-04-09] MEDS: Vancomycin HCl 750 MG in Sodium Chloride 0.9% 250 ML 250 ML IVPB SCH ×2 (06:50→18:10)
--- NOTE | 2018-04-09 07:39 | PRG ---
DATE OF SERVICE: 04/08/2018 SUBJECTIVE: Feeling better. Drains were removed today. No respiratory symptoms. Eating without vo miting or nausea. No diarrhea. OBJECTIVE: VITAL SIGNS: Normal. She is afebrile. GENERAL: Awake, alert, oriented. LUNGS: Clear. HEART: S1, S2, regular rate. ABDOMEN: Soft, not distended. EXTREMITIES: Right knee, not remarkable. LABORATORY DATA: White cell count 13.8, hemoglobin 9.4, platelets 618, 79% neutrophils. Chemistry w ith a sodium of 139, creatinine 0.71. Microbiology with MRSA from all the different cultures. The M IC for vancomycin vancomycin trough 9.2, 25.3, and 25.1, the latest one. The dose has been chris nged to 750 mg twice daily. ASSESSMENT AND DISCUSSION: Osteoarthrosis, hypertension, right knee infection with synovial cutaneou s fistula, status post resection. We will order an MRI to make sure she does not yet have disclosed osteomyelitis in the femur or tibia. Arrange treatment in her home with vancomycin, end date of ther apy 05/17/2018 and weekly labs 2x per week of vancomycin trough.
[2018-04-09] MEDS: Metoprolol Tartrate 25 MG TAB PO SCH ×2 (08:30→20:38)
[2018-04-09] MEDS: Aspirin 81 mg Enteric Coated Tablet PO SCH ×2 (09:01→20:38)
--- NOTE | 2018-04-09 13:07 | MRI ---
MRI RIGHT KNEE WITH AND WITHOUT CONTRAST: INDICATIONS: History of right knee abscess for two months. COMPARISON: Right knee radiograph, dated 04/02/2018. TECHNIQUE: Multiplanar, multisequence MR images were obtained of the right knee with and without contrast, utili zing 20 mL of MultiHance. FINDINGS: There is prominent synovial proliferation seen within the knee joint, most evident within the suprapa tellar pouch. There is a focal defect involving the medial patellar retinaculum, with a subcutaneous fluid collection developing along the anteromedial aspect of the left knee that is predominantly T2 hyperintense, T1 hypointense, and peripherally enhancing. There is advanced osteoarthritic change of the femoral tibial compartments, with areas of subchondral bone loss and subchondral marrow edema, with enhancement present, suspicious for changes of osteomye litis of the distal femur and proximal tibia. There is moderate to severe diffuse chondrosis involvi ng the patellofemoral compartment. There are prominent marginal osteophytes affecting the patellofem oral compartment. The ACL is completely disruptive. The PCL, MCL, and LCLC are intact. The quadriceps and patellar te ndons are intact. The lateral aspect of the extensor mechanism appears intact. The IT band appears within normal limits. There is abnormal increased T2 signal involving the popliteus musculature, lik indy related to reactive myositis. There are prominent degenerative changes involving the menisci. IMPRESSION: Findings likely reflective of chronic septic arthritis with prominent secondary osteoarthritic change of the right knee. There is abnormal signal intensity and subchondral bone loss involving the dista l femur and the proximal tibia, likely related to the presence of some chronic osteomyelitis of the d istal femur and proximal tibia. There is a decompressed joint fluid collection seen within the subcu taneous tissues of the anterior medial right knee, overlying the right knee joint. This fluid collec tion communicates with the knee space through a dehiscence that has occurred through the medial jean lar retinaculum. POS: CASSIDY
--- NOTE | 2018-04-09 13:49 | SPC ---
ULTRASOUND WITH FLUOROSCOPIC GUIDED LEFT UPPER EXTREMITY PICC LINE PLACEMENT: INDICATIONS: Need for long-term IV antibiotics for a right knee infection. TECHNIQUE: Informed consent was obtained. Pre-procedural ultrasound images were performed. FINDINGS: There is a patent left brachial vein. The site overlying the left brachial vein was prepped and drap ed in the usual sterile fashion. Buffered 1% Lidocaine was administered to the overlying subcutaneou s tissues. Under ultrasound guidance, a micropuncture access kit was utilized to gain access to the left brachial vein. A guidewire was advanced to the level of the right atrium. Multiple attempts we re made to manipulate the catheter into the IVC, which proved unfruitful. A 5 Turk[place] catheter sheath was then placed. A single lumen PICC line, trimmed to 50 cm, was guided over the wire and through t he sheath. The sheath and wire were removed. The patient tolerated the procedure without difficulty . Total fluoroscopic time was 1.7 minutes. Total exposure was 8295 mGy per cm2. IMPRESSION: Successful left upper extremity peripherally inserted central catheter line placement. POS: CASSIDY
--- NOTE | 2018-04-09 16:02 | PDOC.PN ---
- Subjective Encounter Start Date: 04/09/18 Encounter Start Time: 16:00 Ms. Elliott was seen today in follow-up of HTN and septic arthritis of the right knee. She does not have any new complaints. - Objective MAR Reviewed: Yes Vital Signs & Weight: Vital Signs (12 hours) Temp Pulse Resp BP BP Pulse Ox 04/09/18 12:41 98.4 F 78 18 145/81 H 97 04/09/18 08:40 98.4 F 71 16 140/84 97 04/09/18 08:29 140/84 Weight Admit Weight 190 lb Weight 190 lb I&O: 04/08/18 04/09/18 04/10/18 06:59 06:59 06:59 Intake Total 1210 1220 Output Total 45 Balance 1165 1220 Result Diagrams: 04/07/18 05:15 04/07/18 05:15 Phys Exam - Physical Examination HEENT: PERRLA Respiratory: no wheezing, no rales, no rhonchi, clear to auscultation bilateral Cardiovascular: RRR, no significant murmur, no rub Gastrointestinal: soft, non-tender, no distention, positive bowel sounds Musculoskeletal: edema present + mild swelling about the knee, no redness or induration Dx/Plan (1) Hypertension Code(s): I10 - ESSENTIAL (PRIMARY) HYPERTENSION Status: Chronic (2) Septic joint of right knee joint Code(s): M00.9 - PYOGENIC ARTHRITIS, UNSPECIFIED Status: Acute Qualifiers: Qualified Code(s): M00.061 - Staphylococcal arthritis, right knee (3) Obesity (BMI 30-39.9) Code(s): E66.9 - OBESITY, UNSPECIFIED Status: Chronic - Plan * HTN- blood pressure is stable * Right knee septic arthritis- Outpatient IV antibiotics are being arranged. * She will need a walker to aid in ambulation
[2018-04-10] MEDS: Sodium Chloride 0.9% 1,000 ML IV SCH ×2 (01:06→11:35)
[2018-04-10] MEDS: traMADol HCl 50 MG TAB PO PRN (01:17)
[2018-04-10] MEDS: HYDROcodone/Acetaminophen 10/325 mg Tablet PO PRN ×3 (02:51→11:34)
[2018-04-10] MEDS: Vancomycin HCl 750 MG in Sodium Chloride 0.9% 250 ML 250 ML IVPB SCH (06:33)
[2018-04-10] MEDS ORDERED: Fluconazole 100 MG TAB PO SCH (09:00)
[2018-04-10] MEDS: Metoprolol Tartrate 25 MG TAB PO SCH (09:22)
[2018-04-10] MEDS: Aspirin 81 mg Enteric Coated Tablet PO SCH (09:22)
[2018-04-10 12:01] VITALS: BP 127/79; TEMP 98.2
--- NOTE | 2018-04-12 01:14 | DIS ---
DATE OF ADMISSION: 04/02/2018 DATE OF DISCHARGE: 04/10/2018 DISCHARGE DISPOSITION: Home. PRIMARY DISCHARGE DIAGNOSES: 1. Septic arthritis of the right knee due to methicillin-resistant Staphylococcus aureus. 2. Hypertension. 3. Osteoarthritis. DISCHARGE MEDICATIONS: The patient is discharged on IV vancomycin which will be administered at home , [place] 10/325 one tablet q.4 hours as needed for pain, aspirin 81 mg daily, tizanidine 4 mg twice a day as needed, Bactrim DS 800 mg twice a day, potassium chloride 10 mEq daily, Lopressor 50 mg twice a day, Mobic 7.5 mg twice daily, furosemide 20 mg twice a day, doxycycline 100 mg twice daily, BuSpar 10 mg t.i.d., benazepril 40 mg daily, and Tylenol No. 3 q.i.d. as needed. PROCEDURES DONE DURING ADMISSION: The patient had an excision of synovial cutaneous fistula of the r ight knee and irrigation of the area. The patient also had later irrigation and debridement, also orellana d an echocardiogram in which the ejection fraction was estimated at 60% to 65%. There was some grade I/III diastolic dysfunction and the patient had an MRI of the lower extremity in which there were fi ndings of chronic septic arthritis with some osteoarthritic changes of the knee. There was some evid ence of chronic osteomyelitis of the distal femur and proximal tibia as well. CODE STATUS: FULL CODE. ALLERGIES: No known drug allergies. HOSPITAL COURSE: Ms. Elliott is a pleasant 57-year-old female, who developed a septic arthritis of the right knee. She was seen by the Orthopedic Surgery Service and admitted for I&D and debridement of the area. The Hospitalist Service was consulted for the aid in medical management. She also has a history of hypertension and this was actually well controlled during her hospital stay. She was a lso seen by Dr. Gallardo with the Infectious Disease Service due to the severity of any infection, there was some evidence of early osteomyelitis and it was recommended that she continue IV vancomycin unti l 05/17/2018. Once these arrangements were made, the patient was able to be discharged home with [facility] and to have follow up with Dr. Gallardo with regards to the septic knee infection as well as Or thopedic Surgery and also with her primary care physician in a few weeks.
== END 2018-04-10 12:55 | disposition home or self-care (01) | DRG 488 ==
LOC: ERS 12:06 → SDC/OP 15:30 → SJJU 16:45
PROVIDERS: ADMIT Orthopaedic Surgery; ATTEND Orthopaedic Surgery
PROC: 0SBC0ZZ Excision of Right Knee Joint, Open Approach (ICD-10-PCS; principal; 2018-04-02)
PROC: 0J9N0ZZ Drainage of Right Lower Leg Subcutaneous Tissue and Fascia, Open Approach (ICD-10-PCS; 2018-04-02)
PROC: 3E1U38Z Irrigation of Joints using Irrigating Substance, Percutaneous Approach (ICD-10-PCS; 2018-04-02)
PROC: 0SBC0ZZ Excision of Right Knee Joint, Open Approach (ICD-10-PCS; 2018-04-04)
PROC: 0J9N0ZZ Drainage of Right Lower Leg Subcutaneous Tissue and Fascia, Open Approach (ICD-10-PCS; 2018-04-04)
PROC: 3E1U38Z Irrigation of Joints using Irrigating Substance, Percutaneous Approach (ICD-10-PCS; 2018-04-04)
PROC: 02HV33Z Insertion of Infusion Device into Superior Vena Cava, Percutaneous Approach (ICD-10-PCS; 2018-04-09)
PROC: B548ZZA Ultrasonography of Superior Vena Cava, Guidance (ICD-10-PCS; 2018-04-09)
DX: M00.9 Pyogenic arthritis, unspecified (principal); M86.651 Other chronic osteomyelitis, right thigh; M86.661 Other chronic osteomyelitis, right tibia and fibula; I10 Essential (primary) hypertension; F41.9 Anxiety disorder, unspecified; Z79.899 Other long term (current) drug therapy; F17.210 Nicotine dependence, cigarettes, uncomplicated; M25.161 Fistula, right knee; E66.9 Obesity, unspecified; B95.62 Methicillin resistant Staphylococcus aureus infection as the cause of diseases classified elsewhere
CPT/HCPCS: 36415; 36569; 80048; 80053; 80202; 83605; 83735; 85025; 85060; 85652; 86140; 87040; 87070; 87077; 87116; 87147; 87186; 87205; 87206; 89051; 89060; 90471; 90732; 93306; 96361; 96374; C1751; G0009; G8978-GP-CJ; G8979-GP-CH; J1100; J1170; J1200; J1885; J2001; J2250; J2270; J2405; J2543; J2550; J2704; J2765; J3010; J3370; J7050

== ENCOUNTER 2018-04-30 09:57 | Day surgery (SDC) | payer BC ==
[2018-04-30] MEDS ORDERED: Activase 2 MG VIAL CATH SCH (10:15)
[2018-04-30] MEDS ORDERED: Sterile Water 10 ML VIAL IVP SCH (10:15)
[2018-04-30 10:22] VITALS: BP 143/69; TEMP 99.1
== END 2018-04-30 11:36 | disposition home or self-care (01) ==
LOC: ONC/OP 09:57
PROVIDERS: ATTEND Internal Medicine Infectious Disease
DX: T82.868A Thrombosis due to vascular prosthetic devices, implants and grafts, initial encounter (principal)
CPT/HCPCS: A4216; J2997